=== PATIENT | male | born 1985 | race Caucasian/White ===

== ENCOUNTER 2019-11-19 09:34 | Emergency (ER) | payer SELFPAY ==
[~2019-11-19] VITALS: Ht 165.1 cm; Wt 69.1 kg
[2019-11-19 09:47] VITALS: BP 126/75
[2019-11-19] MEDS ORDERED: PRED20TA PO (10:15)
[2019-11-19] MEDS ORDERED: KETOROLAC 30 MG/ML VIAL. IM ONE (10:15)
[2019-11-19] MEDS ORDERED: TRAM50TA PO (10:15)
--- NOTE | 2019-11-19 10:15 | PHYS DOC ---
Past History Past Medical History: No Pertinent History Past Surgical History: Other Additional Past Surgical Histo: lymph node removal Alcohol Use: Occasionally General Adult EDM: Chief Complaint: UPPER EXTREMITY PAIN HPI: HPI: Patient is a [age] year old [sex] who presents with [] Review of Systems: Review of Systems: Constitutional: Denies fever or chills Eyes: Denies change in visual acuity HENT: Denies nasal congestion or sore throat Respiratory: Denies cough or shortness of breath Cardiovascular: Denies chest pain or edema GI: Denies abdominal pain, nausea, vomiting, bloody stools or diarrhea : Denies dysuria Musculoskeletal: Denies back pain or joint pain Integument: Denies rash Neurologic: Denies headache, focal weakness or sensory changes Endocrine: Denies polyuria or polydipsia Lymphatic: Denies swollen glands Psychiatric: Denies depression or anxiety Heart Score: Risk Factors: Risk Factors: DM, Current or recent (<one month) smoker, HTN, HLP, family history of CAD, obesity. Risk Scores: Score 0 - 3: 2.5% MACE over next 6 weeks - Discharge Home Score 4 - 6: 20.3% MACE over next 6 weeks - Admit for Clinical Observation Score 7 - 10: 72.7% MACE over next 6 weeks - Early Invasive Strategies Allergies: Allergies: Allergies Coded Allergies Type Severity Reaction Last Updated Verified No Known Drug Allergies 11/19/19 No Physical Exam: PE: Constitutional: Well developed, well nourished, no acute distress, non-toxic appearance. [] HENT: Normocephalic, atraumatic, bilateral external ears normal, oropharynx moist, no oral exudates, nose normal. [] Eyes: PERRLA, EOMI, conjunctiva normal, no discharge. [] Neck: Normal range of motion, no tenderness, supple, no stridor. [] Cardiovascular:Heart rate regular rhythm, no murmur [] Lungs & Thorax: Bilateral breath sounds clear to auscultation [] Abdomen: Bowel sounds normal, soft, no tenderness, no masses, no pulsatile masses. [] Skin: Warm, dry, no erythema, no rash. [] Back: No tenderness, no CVA tenderness. [] Extremities: No tenderness, no cyanosis, no clubbing, ROM intact, no edema. [] Neurologic: Alert and oriented X 3, normal motor function, normal sensory fu nction, no focal deficits noted. [] Psychologic: Affect normal, judgement normal, mood normal. [] Current Patient Data: Vital Signs: Vital Signs Date Time Temp Pulse Resp B/P (MAP) Pulse Ox O2 Delivery O2 Flow Rate FiO2 11/19/19 09:47 97.9 87 16 126/75 (92) 96 Room Air EKG: EKG: [] Radiology/Procedures: Radiology/Procedures: [] Course & Med Decision Making: Course & Med Decision Making Pertinent Labs and Imaging studies reviewed. (See chart for details) [] Dragon Disclaimer: Dragon Disclaimer: This electronic medical record was generated, in whole or in part, using a voice recognition dictation system. Departure Departure: Impression: Primary Impression: Medial epicondylitis, left elbow Disposition: 01 HOME/RESIDENCE PRIOR TO ADM Condition: STABLE Referrals: PCP,SOBEIDA (PCP) RANDI MURPHY MD Patient Instructions: Epicondylitis, Medial (Golfer's Elbow) with [facility] Scripts Tramadol Hcl (TRAMADOL HCL) 50 Mg Tablet 50 MG PO PRN Q6HRS PRN for PAIN, #14 TAB Take each tablet with one regular strength Tylenol 325mg. Prov: ARTHUR DEL RIO DO 11/19/19 Prednisone (PREDNISONE) 20 Mg Tablet 2 TAB PO DAILY for Epicondilytis, #10 TAB Prov: ARTHUR DEL RIO DO 11/19/19 Justification of Admission: Justification of Admission: Justification of Admission Dx: N/A ARTHUR DEL RIO DO Nov 19, 2019 10:15
== END 2019-11-19 10:28 | disposition home or self-care (01) ==
LOC: ER 09:34
DX: M77.02 Medial epicondylitis, left elbow (principal)
CPT/HCPCS: 96372; 99283; J1885

== ENCOUNTER 2020-06-07 08:49 | Emergency (ER) | payer SELFPAY ==
[~2020-06-07] VITALS: Ht 165.1 cm; Wt 69.1 kg
[~2020-06-07 08:49] MED LIST: PRED20TA PO; TRAM50TA PO
[2020-06-07 09:06] VITALS: BP 140/85
[2020-06-07] MEDS ORDERED: DIPH,PERTUSS(ACELL),TET VAC/PF 0.5 ML SYRINGE. VAX IM ONE (09:30)
[2020-06-07] MEDS ORDERED: CLIN150C15 PO (09:39)
--- NOTE | 2020-06-07 09:47 | PHYS DOC ---
Past History Past Medical History: No Pertinent History Past Surgical History: Other Additional Past Surgical Histo: lymph node removal Smoking: Cigarettes Alcohol Use: Occasionally Drug Use: None Adult General Chief Complaint Chief Complaint: CELLULITIS HPI HPI Patient is a 34-year-old male who presents to the emergency room complaining of pain and swelling that starts on his left wrist and extends into his armpit. Patient states that he was working on a dresser when he pulled it he got the bottom of the dresser scraped his wrist. He states that it was rehan. He started to notice some pain and swelling the next day. This morning he woke up and it hurt all the way into his armpit and he had a red streak all the way up. He never had anything like this previously. He does not know when his last tetanus shot was. He states that the pain is achy in nature. He did have a fever last night and took some Tylenol for it. This resolved his fever. Review of Systems Review of Systems Complete ROS is negative unless otherwise documented in HPI Current Medications Current Medications Current Medications Medications (Trade) Dose Ordered Sig/Guille Start Time Stop Time Status Last Admin Dose Admin Diphtheria/ Pertussis/Tetanus Vacc (ADACEL TDap SYRINGE) 0.5 ml ONCE ONCE 06/07/20 09:30 06/07/20 09:31 UNV Allergies Allergies Allergies Coded Allergies Type Severity Reaction Last Updated Verified No Known Drug Allergies 11/19/19 No Physical Exam Physical Exam General: Awake, alert, NAD. Well Nourished, well hydrated. Cooperative HEENT: Atraumatic, EOMI, PERRL, airway patent, moist oral mucosa Neck: Supple, trachea midline Respiratory: CTA bilaterally, normal effort, no wheezing/crackles CV: RRR, no murmur, cap refill <2 GI: Soft, nondistended, nontender, no masses MSK: Left wrist/hand: Full range of motion and sensation in hand and wrist Skin: Warm, dry. Left wrist: Small wound scabbed over with surrounding erythema and swelling. Streaking up towards the armpit, axillary lymphadenopathy Neuro: A&O x3, speech NL, sensory and motor grossly intact, no focal deficits Psych: Normal affect, normal mood, not suicidal or homicidal Current Patient Data Vital Signs Vital Signs Date Time Temp Pulse Resp B/P (MAP) Pulse Ox O2 Delivery O2 Flow Rate FiO2 06/07/20 09:06 98.1 83 18 140/85 (103) 99 EKG EKG [] Radiology/Procedures Radiology/Procedures [] Heart Score Risk Factors: Risk Factors: DM, Current or recent (<one month) smoker, HTN, HLP, family history of CAD, obesity. Risk Scores: Risk Factors: DM, Current or recent (<one month) smoker, HTN, HLP, family history of CAD, obesity. Course & Med Decision Making Course & Med Decision Making Pertinent Labs and Imaging studies reviewed. (See chart for details) Patient is a 34-year-old male who presents to the emergency room complaining of an infected wound. Patient has cellulitis with streaking. He is afebrile at this time. At this time he has full function of his wrist and hand without any numbness or weakness. I will start the patient on clindamycin and update his tetanus. I have discussed with him that if his symptoms get worse, he develops another fever, he develops any kind of numbness or weakness in his hand or wrist, but the antibiotics do not appear to be working he should return to the emergency room for reevaluation. Patient's test results and vitals while in the ED were fully reviewed and discussed with the patient. Patient is stable and at this time does not need admission to the hospital. We have discussed strict return precautions and the importance of following up with their Primary Care Physician. Patient stated understanding and was given an opportunity to ask any questions. Patient is in agreement with plan. Dragon Disclaimer Dragon Disclaimer This electronic medical record was generated, in whole or in part, using a voice recognition dictation system. Departure Departure: Impression: Primary Impression: Cellulitis Disposition: 01 DC HOME SELF CARE/HOMELESS Condition: STABLE Referrals: PCP,NO (PCP) Patient Instructions: Cellulitis Scripts Clindamycin Hcl (CLINDAMYCIN HCL) 150 Mg Capsule 3 CAP PO TID for cellulitis for 10 Days, #90 CAP Prov: PERNELL SEAMAN MD 06/07/20 PERNELL SEAMAN MD Jun 07, 2020 09:47
[2020-06-07] MEDS ORDERED: PENICILLIN G BENZATHINE LA 1,200,000 UNIT/2 ML DISP.SYRIN. IM ONE (10:30)
== END 2020-06-07 10:00 | disposition home or self-care (01) ==
LOC: ER 08:49
DX: L03.114 Cellulitis of left upper limb (principal); R60.0 Localized edema; F17.210 Nicotine dependence, cigarettes, uncomplicated; Z98.890 Other specified postprocedural states
CPT/HCPCS: 86592; 90471; 90715; 99283

== ENCOUNTER 2020-08-01 16:21 | Emergency (ER) | payer SELFPAY ==
[~2020-08-01 16:21] MED LIST changes: +CLIN150C15 PO
== END 2020-08-01 17:15 | disposition left against medical advice (07) ==
LOC: ER 16:21
DX: M54.9 Dorsalgia, unspecified (principal); R05 Cough; Z53.21 Procedure and treatment not carried out due to patient leaving prior to being seen by health care provider

== ENCOUNTER 2021-02-08 10:14 | Emergency (ER) | payer SELFPAY ==
[~2021-02-08] VITALS: Ht 165.1 cm; Wt 69.1 kg
[~2021-02-08 10:14] MED LIST changes: -CLIN150C15 PO; +CLIN150C16 PO
--- NOTE | 2021-02-08 11:23 | RAD ---
Three-view lumbar spine dated 02/08/2021. No comparison available. Clinical indication: Low back pain. FINDINGS: 3 views lumbar spine show normal sagittal alignment. Vertebral body heights are maintained. Mild endp late hypertrophic changes. Mild arthrosis lower lumbar apophyseal joints. IMPRESSION: 1. No acute radiographic abnormality. 2. Mild lower lumbar spondylosis. Electronically signed by: Gm Louis MD (02/08/2021 11:21 AM) [id number]
[2021-02-08 11:25] VITALS: BP 99/65
--- NOTE | 2021-02-08 11:36 | PHYS DOC ---
Past History Past Medical History: No Pertinent History (CLARICE JONES [employer]) Past Surgical History: Other Additional Past Surgical Histo: lymph node removal (CLARICE JONES [employer]) Smoking: Cigarettes Alcohol Use: Occasionally Drug Use: None (CLARICE JONES [employer]ER) Adult General Chief Complaint Chief Complaint: BACK PAIN OR INJURY HPI HPI Patient is a 35-year-old male patient presenting to the ED today complaining of mild intermittent right low back pain symptoms have been going on since yesterday afternoon. Patient states he has history of back issues but not same as today, he states his back feels different today. Patient denies any injuries. Denies any loss of bowel/bladder function. Denies any numbness or tingling to bilateral lower extremities. Describes the pain as sharp and intermittent worse on certain movements. (CLARICE JONES [employer]) Review of Systems Review of Systems Constitutional: Denies fever or chills [] GI: Denies abdominal pain, nausea, vomiting, bloody stools or diarrhea [] : Denies dysuria or hematuria [] Musculoskeletal: Reports right low back pain Integument: Denies rash or skin lesions [] Neurologic: Denies headache, focal weakness or sensory changes [] All other systems were reviewed and found to be within normal limits, except as documented in this note. (CLARICE JONES [employer]) Allergies Allergies Allergies Coded Allergies Type Severity Reaction Last Updated Verified No Known Drug Allergies 11/19/19 No (CLARICE JONES [employer]) Physical Exam Physical Exam Constitutional: Well developed, well nourished, no acute distress, non-toxic appearance. [] Abdomen: Bowel sounds normal, soft, no tenderness, no masses, no pulsatile masses. [] Skin: Warm, dry, no erythema, no rash. [] Back: No tenderness, no CVA tenderness. [] Extremities: No tenderness, no cyanosis, no clubbing, ROM intact, no edema. [] Neurologic: Alert and oriented X 3, normal motor function, normal sensory function, no focal deficits noted. [] Psychologic: Affect normal, judgement normal, mood normal. [] (CLARICE JONES [employer]) Current Patient Data Vital Signs Vital Signs Date Time Temp Pulse Resp B/P (MAP) Pulse Ox O2 Delivery O2 Flow Rate FiO2 02/08/21 11:25 68 19 99/65 (76) 97 Room Air (CLARICE JONES APRN) EKG EKG [] (CLARICE JONES APRN) Radiology/Procedures Radiology/Procedures []PROCEDURE: LUMBAR SPINE 2-3V Three-view lumbar spine dated 02/08/2021. No comparison available. Clinical indication: Low back pain. FINDINGS: 3 views lumbar spine show normal sagittal alignment. Vertebral body heights are maintained. Mild endplate hypertrophic changes. Mild arthrosis lower lumbar apophyseal joints. IMPRESSION: 1. No acute radiographic abnormality. 2. Mild lower lumbar spondylosis. Electronically signed by: Gm Louis MD (02/08/2021 11:21 AM) [id number] DICTATED AND SIGNED BY: GM LOUIS MD DATE: 02/08/21 1120 CC: EMERGENCY,DEPARTMENT; CLARICE JONES APRN; PCP,NO ~MTH0 0 (CLARICE JONES APRN) Heart Score C/O Chest Pain: N/A Risk Factors: Risk Factors: DM, Current or recent (<one month) smoker, HTN, HLP, family history of CAD, obesity. Risk Scores: Risk Factors: DM, Current or recent (<one month) smoker, HTN, HLP, family history of CAD, obesity. (CLARICE JONES APRN) Course & Med Decision Making Course & Med Decision Making Pertinent Labs and Imaging studies reviewed. (See chart for details) Is a 35-year-old male patient presenting to the ED today complaining of low back pain that began yesterday, no known injuries, no cauda equina syndrome symptoms. Lumbar spine x-rays interpreted by radiologist were negative for any acute findings, multilevel spondylosis. Discharged with Medrol Dosepak, Flexeril and naproxen. Follow-up with PCP in 1 week (CLARICE JONES APRN) Dragon Disclaimer Dragon Disclaimer This electronic medical record was generated, in whole or in part, using a voice recognition dictation system. (CLARICE JONES APRN) Attending Co-Sign The patient was seen and interviewed as well as examined at the bedside. The chart was reviewed. The case was discussed. Agree with the plan of care. (JM WILSON DO) Departure Departure: Impression: Primary Impression: Low back pain Additional Impression: Spondylosis of lumbar spine Disposition: HOME / SELF CARE / HOMELESS Condition: STABLE Referrals: PCP,NO (PCP) Follow-up with your primary care doctor in 1 week Patient Instructions: Arthritis, Degenerative-Brief, Back Pain, Adult Additional Instructions: You were evaluated in the emergency room for back pain, your lumbar spine x-rays were negative for any acute findings, you were noted to have spondylolysis to your lumbar spine which is arthritis in your back. Please follow-up with your primary care doctor. Take the prescribed medications as ordered. Scripts Methylprednisolone (MEDROL) 4 Mg Tab.ds.pk 1 PKG PO UD, #1 PKG Prov: CLARICE JONES APOLONIA 02/08/21 Naproxen (NAPROXEN) 500 Mg Tablet 1 TAB PO BID for pain for 7 Days, #14 TAB 0 Refills Prov: CLARICE JONES APOLONIA 02/08/21 Cyclobenzaprine Hcl (CYCLOBENZAPRINE HCL) 10 Mg Tablet 1 TAB PO TID, #30 TAB Prov: AVECLARICE FREY Bunny [place] 02/08/21 Problem Qualifiers Primary Impression: Low back pain Chronicity: acute Back pain laterality: right Sciatica presence: without sciatica Qualified Codes: M54.50 - Low back pain, unspecified CLARICE JONES Bunny BARKSDALE Feb 08, 2021 11:36 JM WILSON DO Feb 10, 2021 12:55
[2021-02-08] MEDS ORDERED: CYCL10TA19 PO (11:44)
[2021-02-08] MEDS ORDERED: NAPR-514 PO (11:44)
[2021-02-08] MEDS ORDERED: METH4TAB2 PO (11:44)
== END 2021-02-08 12:50 | disposition home or self-care (01) ==
LOC: ER 10:14
DX: M47.816 Spondylosis without myelopathy or radiculopathy, lumbar region (principal); F17.210 Nicotine dependence, cigarettes, uncomplicated
CPT/HCPCS: 72100; 99283

== ENCOUNTER 2021-05-08 12:22 | Emergency (ER) | payer SELFPAY ==
[~2021-05-08] VITALS: Ht 165.1 cm; Wt 70.1 kg
[~2021-05-08 12:22] MED LIST changes: +CYCL10TA19 PO; +METH4TAB2 PO; +NAPR-514 PO
[2021-05-08 12:38] VITALS: BP 136/83
[2021-05-08] MEDS ORDERED: CYCL10TA19 PO (12:47)
[2021-05-08] MEDS ORDERED: PRED20TA PO (12:47)
--- NOTE | 2021-05-08 12:48 | PHYS DOC ---
Past History Past Medical History: No Pertinent History Past Surgical History: Other Additional Past Surgical Histo: lymph node removal Smoking: Cigarettes Alcohol Use: None Drug Use: None General Adult EDM: Chief Complaint: BACK PAIN - NO INJURY HPI: HPI: 35-year-old male presents with chronic low back pain. Patient tells me he is having a flareup of his low back pain. He has been told he has degenerative arthritis in the lumbar spine. He is simply here because he does not currently have a primary care physician. He states that the last time he had a flareup prednisone and Flexeril was effective. He was hoping this would work again. He has a new job and is about to qualify for new insurance. He will get a primary physician at that time. He has no new injury. Denies numbness, tingling, altered sensation of the legs. Review of Systems: Review of Systems: Constitutional: Denies fever or chills Eyes: Denies change in visual acuity HENT: Denies nasal congestion or sore throat Respiratory: Denies cough or shortness of breath Cardiovascular: Denies chest pain or edema GI: Denies abdominal pain, nausea, vomiting, bloody stools or diarrhea : Denies dysuria Musculoskeletal: Low back pain Integument: Denies rash Neurologic: Denies headache, focal weakness or sensory changes Endocrine: Denies polyuria or polydipsia Lymphatic: Denies swollen glands Psychiatric: Denies depression or anxiety Allergies: Allergies: Allergies Coded Allergies Type Severity Reaction Last Updated Verified No Known Drug Allergies 11/19/19 No Physical Exam: PE: Constitutional: Well developed, well nourished, no acute distress, non-toxic appearance. [] HENT: Normocephalic, atraumatic, bilateral external ears normal, oropharynx moist, no oral exudates, nose normal. [] Eyes: PERRLA, EOMI, conjunctiva normal, no discharge. [] Neck: Normal range of motion, no tenderness, supple, no stridor. [] Cardiovascular: Heart rate regular rhythm, no murmur [] Lungs & Thorax: Bilateral breath sounds clear to auscultation [] Abdomen: Bowel sounds normal, soft, no tenderness, no masses, no pulsatile masses. [] Skin: Warm, dry, no erythema, no rash. [] Back: Bilateral paralumbar muscle tightness [] Extremities: No tenderness, no cyanosis, no clubbing, ROM intact, no edema. [] Neurologic: Alert and oriented X 3, normal motor function, normal sensory function, no focal deficits noted. [] Psychologic: Affect normal, judgement normal, mood normal. [] Current Patient Data: Vital Signs: Vital Signs Date Time Temp Pulse Resp B/P (MAP) Pulse Ox O2 Delivery O2 Flow Rate FiO2 05/08/21 12:38 98.2 77 16 136/83 (100) 97 EKG: EKG: [] Radiology/Procedures: Radiology/Procedures: [] Heart Score: C/O Chest Pain: N/A Risk Factors: Risk Factors: DM, Current or recent (<one month) smoker, HTN, HLP, family history of CAD, obesity. Risk Scores: Score 0 - 3: 2.5% MACE over next 6 weeks - Discharge Home Score 4 - 6: 20.3% MACE over next 6 weeks - Admit for Clinical Observation Score 7 - 10: 72.7% MACE over next 6 weeks - Early Invasive Strategies Course & Med Decision Making: Course & Med Decision Making Pertinent Labs and Imaging studies reviewed. (See chart for details) The patient's proposed treatment regimen for his condition is reasonable. I will prescribe prednisone for 5 days and Flexeril. I have encouraged him to establish with a primary physician as soon as he is able. He is stable for discharge at this time. [] Mike Disclaimer: Mike Disclaimer: This electronic medical record was generated, in whole or in part, using a voice recognition dictation system. Departure Departure: Impression: Primary Impression: Low back pain Qualified Codes: M54.50 - Low back pain, unspecified; G89.29 - Other chronic pain Disposition: HOME / SELF CARE / HOMELESS Condition: STABLE Referrals: PCP,NO (PCP) Patient Instructions: Low Back Sprain with [facility] Scripts Prednisone (PREDNISONE) 20 Mg Tablet 2 TAB PO DAILY for low back pain for 5 Days, #10 TAB Prov: JM WILSON DO 05/08/21 Cyclobenzaprine Hcl (CYCLOBENZAPRINE HCL) 10 Mg Tablet 1 TAB PO TID PRN for MUSCLE SPASMS, #30 TAB Prov: JM WILSON DO 05/08/21 JM WILSON DO May 08, 2021 12:47
== END 2021-05-08 12:54 | disposition home or self-care (01) ==
LOC: ER 12:22
DX: M54.59 Other low back pain (principal); G89.29 Other chronic pain; F17.210 Nicotine dependence, cigarettes, uncomplicated
CPT/HCPCS: 99283